=== PATIENT | male | born 1955 | race Caucasian/White ===

== ENCOUNTER 2017-07-01 17:35 | Emergency (ER) | payer OTHER ==
[2017-07-01] MEDS ORDERED: HYDROCHLOROTHIA25 MG PO (18:11)
[2017-07-01] MEDS ORDERED: PLAVIX75 MG PO (18:11)
[2017-07-01] MEDS ORDERED: PRAVASTATIN SOD20 MG PO (18:11)
[2017-07-01] MEDS ORDERED: PANTOPRAZOLE SO40 MG PO (18:11)
[2017-07-01] MEDS ORDERED: COZAAR25 MG PO (18:11)
[2017-07-01] MEDS ORDERED: FOLIC ACID1 MG PO (18:11)
[2017-07-01] MEDS ORDERED: CENTRUM SILVER1 EAC3 PO (18:11)
[2017-07-01] MEDS ORDERED: REQUIP0.5 MG PO (18:11)
[2017-07-01] MEDS ORDERED: ASPIRIN325 MG PO (18:11)
[2017-07-01] MEDS ORDERED: METFORMIN HCL500 MG PO (18:11)
[2017-07-01] MEDS ORDERED: VITAMIN B COMP1 EACH PO (18:11)
[2017-07-01] MEDS ORDERED: METOPROLOL SUCC25 MG PO (18:11)
[2017-07-01] MEDS ORDERED: ASPIRIN 81 MG CHEW TAB PO ONE (18:30)
[2017-07-01 18:37] LABS: BILIRUBIN,URINE NEGATIVE (NEGATIVE); CLARITY,URINE CLEAR (CLEAR); COLOR,URINE YELLOW (YELLOW); KETONES,URINE TRACE (NEGATIVE); LEUKOCYTE ESTERASE ,URINE NEGATIVE (NEGATIVE); NITRITE,URINE NEGATIVE (NEGATIVE); PROTEIN,URINE DIPSTICK NEGATIVE (NEGATIVE); URINE UROBILINOGEN 0.2 mg/dL (0.2 - 1)
[2017-07-01 18:37] LABS: BASOPHILS # (AUTO) 0.1 (0.0-0.1); BASOPHILS % 0.5 % (0.0-1.0); EOSINOPHILS % 0.1 % (0.0-6.0); HEMATOCRIT 43.3 % (38.2-49.6); HEMOGLOBIN 14.7 g/dL (14.0-18.0); LYMPHOCYTES # (AUTO) 1.6 (1.0-3.2); LYMPHOCYTES % 12.1 % (18.0-39.1); MEAN CORPUSCULAR HEMOGLOBIN 31.7 pg (28-32); MEAN CORPUSCULAR HGB CONC 33.9 g/dL (31-35); MEAN CORPUSCULAR VOLUME 93.3 fL (81-99); MONOCYTES # (AUTO) 0.8 (0.2-0.8); MONOCYTES % 5.8 % (4.4-11.3); NEUTROPHILS # (AUTO) 10.8 (2.1-6.9); NEUTROPHILS % 81.1 % (38.7-80.0); PLATELET COUNT 337 x10e3/uL (140-360); RED BLOOD COUNT 4.64 x10e6/uL (4.3-5.7); RED CELL DISTRIBUTION WIDTH 12.9 % (11.7-14.4)
[2017-07-01 18:40] LABS: BACTERIA,URINE RARE /HPF; MUCUS,URINE MODERATE (RARE); WBC,URINE (MAN) 0-5 /HPF (0-5)
[2017-07-01 18:42] LABS: INR 0.79; PARTIAL THROMBOPLASTIN TIME 24.2 seconds (23.8-35.5); PROTHROMBIN TIME 11.4 seconds (11.9-14.5)
[2017-07-01 18:51] LABS: ALANINE AMINOTRANSFERASE 20 IU/L (0-55); ALBUMIN 4.4 g/dL (3.5-5.0); ALBUMIN/GLOBULIN RATIO 1.4 (0.8-2.0); ALKALINE PHOSPHATASE 66 IU/L (40-150); BLOOD UREA NITROGEN 16 mg/dL (7-26); BUN/CREATININE RATIO 17 (6-25); CALCIUM 9.7 mg/dL (8.4-10.2); CARBON DIOXIDE 25 mmol/L (22-29); CHLORIDE 102 mmol/L (98-107); CREATINE KINASE 105 IU/L (30-200); CREATININE, SERUM 0.92 mg/dL (0.72-1.25); EST GLOMERULAR FILTRATION RATE > 60 ML/MIN (60-); GLUCOSE 112 mg/dL (74-118); SODIUM 138 mmol/L (136-145)
--- NOTE | 2017-07-01 19:46 | Diagnostic Imaging Report ---
Portable chest x-ray CPT code 90557 INDICATION: Hypertension, chest pain COMPARISON: None FINDINGS: Frontal view of the chest obtained at 1915 hours. The cardiac silhouette is normal. The pulmonary vascular marking are normal. The lungs demonstrate no mass or infiltrate. The costophrenic angles are sharp. There is no pneumothorax. The osseous structures are intact and normal in morphology. IMPRESSION: No acute cardiopulmonary process. Signed by: Dr. Magno Martinez MD on 07/01/2017 7:42 PM
[2017-07-01 22:40] VITALS: BP 140/85
== END 2017-07-01 22:52 | disposition home or self-care (01) ==
LOC: ER 17:35
DX: R00.2 Palpitations (principal); I25.2 Old myocardial infarction; I10 Essential (primary) hypertension; E11.9 Type 2 diabetes mellitus without complications; Z87.891 Personal history of nicotine dependence
CPT/HCPCS: 36415; 71045; 80053; 81001; 82550; 82553; 83735; 83880; 84484; 85025; 85610; 85730; 87086; 93005; 99284